=== PATIENT | male | born 1990 | race Caucasian/White ===

== ENCOUNTER 2025-01-09 10:38 | Emergency (ER) | payer OTHER, SELFPAY ==
[2025-01-09 10:40] VITALS: BP 142/81; PULSE 83; RESP 14; TEMP 36.1; O2SAT 99; BMI 33.0
--- NOTE | 2025-01-09 11:07 | DI.RAD.S_ITS ---
PROCEDURE: XR HAND RT MIN 3V INDICATIONS: possible air injection under skin this am. pt unsure TECHNIQUE: 3 views of the hand(s) acquired. COMPARISON: None. FINDINGS: Bones: No fractures or dislocations. Carpal bones are normally aligned. No suspicious bony lesions. Soft tissues: No suspicious soft tissue calcifications. No soft tissue gas. IMPRESSION: No acute bony abnormality. No soft tissue gas. Dictated by: Xavier Soliman M.D. on 01/09/2025 at 11:39 Approved by: Xavier Soliman M.D. on 01/09/2025 at 11:39
--- NOTE | 2025-01-09 11:07 | DI.RAD.S_ITS ---
PROCEDURE: XR HAND LT MIN 3V INDICATIONS: possible air injection under skin this am. pt unsure TECHNIQUE: 3 views of the hand(s) acquired. COMPARISON: None. FINDINGS: Bones: No fractures or dislocations. Carpal bones are normally aligned. No suspicious bony lesions. Soft tissues: No suspicious soft tissue calcifications. No soft tissue gas. IMPRESSION: No acute bony abnormality. No soft tissue gas. Dictated by: Xavier Soliman M.D. on 01/09/2025 at 11:40 Approved by: Xavier Soliman M.D. on 01/09/2025 at 11:40
--- NOTE | 2025-01-09 11:08 | ED.UPPEXIN ---
HPI - Extremity Injury (Upper) General Chief Complaint: Extremity Injury, Upper Stated Complaint: possible air injection under skin, L&I, WVC Time Seen by Provider: 01/09/25 10:55 Source: patient, RN notes reviewed and old records reviewed Mode of arrival: Ambulatory History of Present Illness HPI narrative: 34-year-old male history of eczema on an injectable for the past 3 months. Patient was at work today was working on an air compressor the air was not turned off he had it clamped with a pair of pliers. He was trying to push in metal portion and he did not feel any air going into his hands but states he could tell that there was a leak. Patient states he thinks maybe his right hand but he is not actually sure. He notes has a little bit discomfort in his right hand but hurt his hand last week in his had some chronic discomfort. He has not noticed any new skin changes he notices his chronic eczema changes. He denies any other injuries. He states it is an air compressor only no other pains or other solvents, etc. or used. He denies any daily medications. Denies allergies. No tobacco, no alcohol or recreational drugs. This occurred at 8:45 a.m. this morning. Related Data Previous Rx's ?Medication ?Instructions ?Recorded fexofenadine 60 mg tablet 60 mg PO BID #60 tabs 06/07/24 diphenhydramine HCl 25 mg capsule 25 mg PO BEDTIME PRN nausea and 08/13/24 vomiting #30 caps metoclopramide HCl 10 mg tablet 10 mg PO BID-QID PRN nausea and 08/13/24 vomiting #60 tabs ondansetron HCl 8 mg tablet 8 mg PO Q12H PRN nausea and 08/13/24 vomiting #60 tabs Allergies Allergy/AdvReac Type Severity Reaction Status Date / Time lexapro Allergy Mild nausea, Uncoded 01/09/25 10:40 brain fog, hotflashes Review of Systems Review of Systems ROS Unobtainable: All systems reviewed & are unremarkable except as noted in HPI and below Patient History Medical History Hyperlipidemia Injury due to chemical exposure Anosmia OCD (obsessive compulsive disorder) (~2014) Chronic nausea Dyshidrotic eczema Surgical History Anesthesia History of oral surgery [place] teeth removed History of verrucae (wart) excision Family History Father Multiple sclerosis Grandfather Cancer Social History Smoking Status: Unknown if ever smoked Smoking Status: Unknown if ever smoked Exam Narrative Exam Narrative: GENERAL: Alert and oriented x three, male in mild distress HEENT: Head normocephalic, atraumatic, EOMI, pupils reactive, face symmetric, moist mucous membranes NECK: Supple, full range of motion CARDIOVASCULAR: Regular rate and rhythm without murmurs, rubs or gallops. RESPIRATORY: Breath sounds equal bilaterally, no wheezes rales or rhonchi. ABDOMEN: Soft, nontender. Normoactive bowel sounds all 4 quadrants. No guarding or rebound, rigidity, no mass : No CVA tenderness EXTREMITIES: Normal range of motion, no clubbing or edema. Neurovascularly intact. Patient has some slight erythema slightly raised on the backs of his hands he states this is his normal eczema. He has no tenderness no obvious wounds no crepitus. He has full range of motion, cap refills less than 2 seconds in all 5 fingers. No bony tenderness. No other warmth or erythema appreciated. NEUROLOGICAL: Cranial nerves II through XII grossly intact. Moving all extremities SKIN: Warm, dry, no petechiae, no rashes or lesions. Initial Vital Signs Initial Vital Signs: Vital Signs Temperature 97.0 F L 01/09/25 10:40 Pulse Rate 83 01/09/25 10:40 Respiratory Rate 14 01/09/25 10:40 Blood Pressure 142/81 H 01/09/25 10:40 Pulse Oximetry 99 01/09/25 10:40 Oxygen Delivery Method Room Air 01/09/25 10:40 Course Orders Ordered: ED Orders 01/09/25 11:07 XR hand LT min 3V Stat XR hand RT min 3V Stat Vital Signs Vital signs: Vital Signs - 8 hr 01/09/25 12:35 Temperature 98.3 F Pulse Rate 78 Respiratory Rate 18 Blood Pressure 163/78 H Pulse Oximetry 100 Oxygen Delivery Method Room Air MDM - Extremity Injury (Upper) MDM Narrative Medical decision making narrative: 34-year-old male concern for possible air injection noted of the skin in his hand he has suspect more his right hand over his left but he is not 100% sure if he did actually have an air injection. He was working with the tubing of the air compressor he had it clamped off with a pliers he was putting and a metal piece he did not feel any air go into either hand but noticed that there was a leak afterwards. Hand x-rays right, no soft tissue bony abnormality no soft tissue gas. Hand xray left, no acute bony abnormality. No soft tissue gas. Patient's x-ray does not show any soft tissue gas. Patient is unsure if he actually had on air injection exposure. He did not actually feel any air go into his hands but he noticed it was leaking afterwards the tubing was compressed so there may has been a slow leak. Told patient to watch for any changes to return if he is having any new changes but at this time we will do watchful waiting with strict return precautions. Patient feels comfortable with this plan. He notes has a little bit of discomfort in his right hand but states he injured it in the last week and that pain was present before he had the potential exposure to the air injection. L&I paperwork was completed. Discharge Plan Departure Patient Disposition: Home Clinical Impression: Person with feared complaint in whom no diagnosis is made Activity Restrictions/Additional Instructions: Follow up for recheck as needed. If you continue to be asympatomtic you do not have to do any special follow up. If you develop new symptoms please return for re-evaluation. On your imaging there was no air or obvious foreign material underneath the skin that is appreciated. Please watch for any new or worsening pain, new changes to your skin, new numbness tingling or weakness any difficulty with movement, if you have any pain tracking up your arm or other new or concerning changes return to the emergency department. Prescriptions: No Action fexofenadine 60 mg tablet 60 mg PO BID Qty: 60 3RF metoclopramide HCl 10 mg tablet 10 mg PO BID-QID PRN (Reason: nausea and vomiting) Qty: 60 1RF diphenhydramine HCl 25 mg capsule 25 mg PO BEDTIME PRN (Reason: nausea and vomiting) Qty: 30 2RF ondansetron HCl 8 mg tablet 8 mg PO Q12H PRN (Reason: nausea and vomiting) Qty: 60 1RF Referrals: Bryan Huntley MD [Primary Care Provider, [facility]] Stand Alone Forms: Patient Portal/API
[2025-01-09 12:35] VITALS: BP 163/78; PULSE 78; RESP 18; TEMP 36.8; O2SAT 100
== END 2025-01-09 12:45 | disposition home or self-care (01) ==
PROVIDERS: Emergency Provider Emergency Medicine; PCP Family Medicine
DX: S69.91XA Unspecified injury of right wrist, hand and finger(s), initial encounter (principal); X58.XXXA Exposure to other specified factors, initial encounter
CPT/HCPCS: 73130; 99281; 99283